=== PATIENT | male | born 1995 | race Caucasian/White ===

== ENCOUNTER 2017-09-01 11:33 | Emergency (ER) | payer OTHER ==
[~2017-09-01] VITALS: Ht 185.4 cm; Wt 57.5 kg
[~2017-09-01 11:33] MED LIST: AEROCHAMBER Z-S1 DEV PO; ALBUTEROL0.83 MG/ML IH; LEVAQUIN 5500 MG/TA1 PO; LEVAQUIN 750MG750 M1 PO; NORCO 325 MG-51 TAB PO; PREDNISONE20 MG PO; PROVENTIL0.09 MG/A1 IH; XARELTO15 MG PO; [UNRECOGNIZED DRUG - CODE] PO; [UNRECOGNIZED DRUG - REMARK]
[2017-09-01 11:37] VITALS: BP 134/91
[2017-09-01 13:58] LABS: BASO % 0.6 % (0.0-2.0); EOS % 0.8 % (0-4.0); GRAN # 3.4 (1.4-6.5); GRAN % 65.7 % (42.2-75.2); HEMOGLOBIN 15.5 g/dl (13.5-18.0); LYMPH # 1.2 (1.2-3.4); LYMPH % 22.4 % (20.0-51.0); MEAN CELL VOLUME 89 fl (80.0-100.0); MEAN CORPUSCULAR HEMOGLOBIN 30 pg (27.0-31.0); MEAN CORPUSCULAR HGB CONC 34 g/dl (33.0-37.0); MEAN PLATELET VOLUME 9.7 fl (7.4-10.4); MONO # 0.5 (0.1-0.6); MONO % 10.3 % (1.7-9.3); PLATELET COUNT 148 K/mm3 (130-400); RED BLOOD COUNT 5.15 M/mm3 (4.20-5.60); REDCELL DISTRIBUTION WIDTH-CV 13.7 % (11.5-14.5)
[2017-09-01 14:09] LABS: ALBUMIN 4.5 gm/dL (3.5-5.0); BILIRUBIN,TOTAL 2.3 mg/dL (0.0-1.0); CREATININE, serum 0.93 mg/dL (0.66-1.25); POTASSIUM 3.9 mmol/L (3.4-5.0); TOTAL PROTEIN 8.2 gm/dL (6.4-8.2)
[2017-09-01 15:00] VITALS: TEMP 99.4
[2017-09-01] MEDS ORDERED: TAMIFLU 75MG75 MG PO (16:00)
[2017-09-01 16:07] VITALS: PULSE 102
== END 2017-09-01 16:08 | disposition home or self-care (01) ==
LOC: COL.ER 11:33
PROVIDERS: Nurse Practitioner
DX: J10.1 Influenza due to other identified influenza virus with other respiratory manifestations (principal); Z91.14 Patient's other noncompliance with medication regimen; Z85.71 Personal history of Hodgkin lymphoma; I27.0 Primary pulmonary hypertension; Z86.711 Personal history of pulmonary embolism; Z86.718 Personal history of other venous thrombosis and embolism; Z98.890 Other specified postprocedural states; Z87.891 Personal history of nicotine dependence; Z79.01 Long term (current) use of anticoagulants
CPT/HCPCS: J7030; Q9967

== ENCOUNTER 2018-06-02 09:19 | Emergency (ER) | payer BC ==
[~2018-06-02] VITALS: Ht 185.4 cm; Wt 63.6 kg
[~2018-06-02 09:19] MED LIST changes: +TAMIFLU 75MG75 MG PO
[2018-06-02 09:24] VITALS: TEMP 97.1
[2018-06-02 09:50] LABS: BASO % 0.7 % (0.0-2.0); EOS # 0.2 (0.0-0.7); EOS % 2.7 % (0-4.0); GRAN % 71.5 % (42.2-75.2); HEMATOCRIT 42.2 % (42.0-52.0); HEMOGLOBIN 13.9 g/dl (13.5-18.0); LYMPH % 17.6 % (20.0-51.0); MEAN CELL VOLUME 92 fl (80.0-100.0); MEAN CORPUSCULAR HEMOGLOBIN 30 pg (27.0-31.0); MEAN CORPUSCULAR HGB CONC 33 g/dl (33.0-37.0); MEAN PLATELET VOLUME 8.7 fl (7.4-10.4); MONO # 0.4 (0.1-0.6); MONO % 7.1 % (1.7-9.3); PLATELET COUNT 185 K/mm3 (130-400); RED BLOOD COUNT 4.58 M/mm3 (4.20-5.60); REDCELL DISTRIBUTION WIDTH-CV 13.8 % (11.5-14.5)
[2018-06-02 09:56] LABS: INR 1.3 (0.8-3.0); PROTHROMBIN TIME 15.1 SECONDS (9.7-12.8)
[2018-06-02 10:03] LABS: ALBUMIN 3.6 gm/dL (3.5-5.0); BILIRUBIN,TOTAL 1.6 mg/dL (0.0-1.0); CALCIUM 8.8 mg/dL (8.4-10.2); CREATININE, serum 1.02 mg/dL (0.66-1.25); POTASSIUM 3.9 mmol/L (3.4-5.0); TOTAL PROTEIN 6.6 gm/dL (6.4-8.2)
[2018-06-02] MEDS ORDERED: LASIX 20MG TABL20 MG PO (10:10)
[2018-06-02] MEDS ORDERED: XARELTO20 MG PO (10:11)
[2018-06-02] MEDS ORDERED: OPSUMIT PO (10:12)
[2018-06-02] MEDS ORDERED: CIALIS20 MG PO (10:12)
[2018-06-02 12:53] VITALS: BP 111/88; PULSE 97
== END 2018-06-02 12:55 | disposition home or self-care (01) ==
LOC: COL.ER 09:19
PROVIDERS: Emergency Medicine
DX: I27.20 Pulmonary hypertension, unspecified (principal); I50.9 Heart failure, unspecified; E87.70 Fluid overload, unspecified; C81.90 Hodgkin lymphoma, unspecified, unspecified site; Z79.01 Long term (current) use of anticoagulants; Z86.711 Personal history of pulmonary embolism
CPT/HCPCS: J1940

== ENCOUNTER 2018-08-18 16:20 | Emergency (ER) | payer BC ==
[~2018-08-18] VITALS: Ht 185.4 cm; Wt 63.6 kg
[~2018-08-18 16:20] MED LIST changes: +CIALIS20 MG PO; +LASIX 20MG TABL20 MG PO; +OPSUMIT PO; +XARELTO20 MG PO
[2018-08-18] MEDS ORDERED: ADCIRCA20 MG PO (16:49)
[2018-08-18 17:03] LABS: BASO % 0.6 % (0.0-2.0); EOS # 0.1 (0.0-0.7); EOS % 0.8 % (0-4.0); GRAN % 77.4 % (42.2-75.2); HEMATOCRIT 40.5 % (42.0-52.0); HEMOGLOBIN 13.5 g/dl (13.5-18.0); LYMPH # 0.8 (1.2-3.4); LYMPH % 12.1 % (20.0-51.0); MEAN CELL VOLUME 93 fl (80.0-100.0); MEAN CORPUSCULAR HEMOGLOBIN 31 pg (27.0-31.0); MEAN CORPUSCULAR HGB CONC 33 g/dl (33.0-37.0); MEAN PLATELET VOLUME 8.8 fl (7.4-10.4); MONO # 0.6 (0.1-0.6); MONO % 8.8 % (1.7-9.3); PLATELET COUNT 177 K/mm3 (130-400); RED BLOOD COUNT 4.36 M/mm3 (4.20-5.60); REDCELL DISTRIBUTION WIDTH-CV 13.6 % (11.5-14.5)
[2018-08-18 17:11] LABS: ALBUMIN 3.6 gm/dL (3.5-5.0); CALCIUM 8.5 mg/dL (8.4-10.2); CREATININE, serum 1.14 mg/dL (0.66-1.25); POTASSIUM 3.2 mmol/L (3.4-5.0); TOTAL PROTEIN 6.7 gm/dL (6.4-8.2)
[2018-08-18] MEDS ORDERED: K-DUR20 MEQ PO (17:59)
[2018-08-18 19:51] VITALS: BP 108/82; PULSE 91; TEMP 97.3
== END 2018-08-18 20:15 | disposition home or self-care (01) ==
LOC: COL.ER 16:20
PROVIDERS: Emergency Medicine
DX: I50.9 Heart failure, unspecified (principal); I27.20 Pulmonary hypertension, unspecified; E87.6 Hypokalemia; I48.92 Unspecified atrial flutter
CPT/HCPCS: J1940; J3475

== ENCOUNTER 2019-08-14 11:38 | Inpatient (IN) | payer BC, MEDICARE ==
[~2019-08-14] VITALS: Ht 185.4 cm; Wt 63.3 kg
[~2019-08-14 11:38] MED LIST changes: +ADCIRCA20 MG PO; +K-DUR20 MEQ PO
[2019-08-14] MEDS ORDERED: ALDACTONE50 MG PO (12:36)
[2019-08-14] MEDS ORDERED: OPSUMIT PO (12:37)
[2019-08-14 14:00] LABS: BASO # 0.1 (0.0-0.2); BASO % 0.9 % (0.0-2.0); EOS # 0.3 (0.0-0.7); EOS % 5.1 % (0-4.0); HEMATOCRIT 41.7 % (42.0-52.0); HEMOGLOBIN 13.4 g/dl (13.5-18.0); LYMPH # 0.6 (1.2-3.4); LYMPH % 10.3 % (20.0-51.0); MEAN CELL VOLUME 95 fl (80.0-100.0); MEAN CORPUSCULAR HEMOGLOBIN 31 pg (27.0-31.0); MEAN CORPUSCULAR HGB CONC 32 g/dl (33.0-37.0); MEAN PLATELET VOLUME 9.6 fl (7.4-10.4); MONO # 0.4 (0.1-0.6); MONO % 8.3 % (1.7-9.3); PLATELET COUNT 162 K/mm3 (130-400); REDCELL DISTRIBUTION WIDTH-CV 14.4 % (11.5-14.5)
[2019-08-14 14:25] LABS: ALANINE AMINOTRANSFERASE 12 U/L (21-72); ALBUMIN 4.2 gm/dL (3.5-5.0); ALKALINE PHOSPHATASE 81 U/L (50-136); ANION GAP 12 mmol/L (7-16); AST,SGOT 19 U/L (15-37); BILIRUBIN,TOTAL 2.2 mg/dL (0.0-1.0); BLOOD UREA NITROGEN 12 mg/dL (9-20); CALCIUM 8.6 mg/dL (8.4-10.2); CARBON DIOXIDE 27 mmol/L (22-30); CHLORIDE 101 mmol/L (98-107); CREATININE, serum 1.01 (0.66-1.25); GLUCOSE 64 mg/dL (74-106); POTASSIUM 3.6 mmol/L (3.4-5.0); SODIUM 140 mmol/L (137-145); TOTAL PROTEIN 7.5 gm/dL (6.4-8.2)
[2019-08-14 14:40] LABS: TROPONIN-I < 0.012 ng/mL (0.000-0.035)
--- NOTE | 2019-08-14 16:30 | NUR ---
PATIENT ADMITED INTO ROOM 350 FROM ER WITH PNEUMONIA AND PULMONARY HTN. PATIENT HAS AN EXTENSIVE HISTORY INCLUDING HODGKINS LYMPHOMA, DVT, PE, AND CHF. NOTED RIGHT LL DEMINISHED, EXP WHEEZE. PATIENT REPORTS PRODUCTIVE COUGH WITH YELLOW/GREEN SPUTUM, NOT SEEN AT THIS TIME. PATIENT WAS REQUIRING O2 AT 2L IN ER TO KEEP SATS ABOVE 90%. PATIENT TYPICALLY REFUSES OXYGEN. TELE INPLACE WITH HR IN 90-100'S. HOSPITALIST AT BEDSIDE. HEAD TO TOE COMPLETE. MOTHER AT BEDSIDE BUT GOING HOME TO LET THE DOG OUT AND GET THE PATIENT'S MEDS.
[2019-08-14 17:09] VITALS: BP 107/76; PULSE 97; TEMP 98.7
--- NOTE | 2019-08-14 17:30 | NUR ---
PATIENT GOING DOWN FOR CT
[2019-08-14 19:31] VITALS: BP 108/65; PULSE 109; TEMP 98.5
--- NOTE | 2019-08-14 19:45 | NUR ---
Pt. sitting up in bed with family at bedside. Pt. is A&OX3, assessment complete. INT to rt. ac patent. Pt. denies pain or other needs at this time.
[2019-08-15 00:40] VITALS: BP 106/53; PULSE 104; TEMP 99.2
[2019-08-15 04:30] VITALS: BP 100/50; PULSE 101; TEMP 98.4
[2019-08-15 07:17] LABS: BASO # 0.1 (0.0-0.2); BASO % 1.1 % (0.0-2.0); EOS # 0.2 (0.0-0.7); GRAN # 3.2 (1.4-6.5); GRAN % 69.6 % (42.2-75.2); HEMATOCRIT 37.1 % (42.0-52.0); HEMOGLOBIN 12.1 g/dl (13.5-18.0); LYMPH # 0.7 (1.2-3.4); LYMPH % 16.3 % (20.0-51.0); MEAN CELL VOLUME 94 fl (80.0-100.0); MEAN CORPUSCULAR HEMOGLOBIN 31 pg (27.0-31.0); MEAN CORPUSCULAR HGB CONC 33 g/dl (33.0-37.0); MEAN PLATELET VOLUME 9.6 fl (7.4-10.4); MONO # 0.4 (0.1-0.6); MONO % 8.8 % (1.7-9.3); PLATELET COUNT 151 K/mm3 (130-400); RED BLOOD COUNT 3.95 M/mm3 (4.20-5.60); REDCELL DISTRIBUTION WIDTH-CV 14.5 % (11.5-14.5)
[2019-08-15 07:31] LABS: ALBUMIN 3.8 gm/dL (3.5-5.0); BILIRUBIN,TOTAL 1.6 mg/dL (0.0-1.0); C-REACTIVE PROTEIN 1.3 mg/dL (0.0-0.9); CALCIUM 8.5 mg/dL (8.4-10.2); CREATININE, serum 0.98 (0.66-1.25); POTASSIUM 3.5 mmol/L (3.4-5.0); TOTAL PROTEIN 6.7 gm/dL (6.4-8.2)
[2019-08-15 07:35] VITALS: BP 113/72; PULSE 107; TEMP 98.6
[2019-08-15 08:12] LABS: ERYTHROCYTE SEDIMENTATION RATE 9 mm/hr (0-15)
--- NOTE | 2019-08-15 08:32 | NUR ---
Report called to [facility].
--- NOTE | 2019-08-15 08:51 | NUR ---
Patient transferred via EMS to [facility] at 0840.
== END 2019-08-15 08:40 | disposition short-term general hospital (02) | DRG 871 ==
LOC: COL.ER 11:38 → SURG 15:06
PROVIDERS: Emergency Medicine; Physician Assistant; ADMIT Student in an Organized Health Care Education/Training Program
DX: A41.9 Sepsis, unspecified organism (principal); J18.9 Pneumonia, unspecified organism; I50.22 Chronic systolic (congestive) heart failure; M31.8 Other specified necrotizing vasculopathies; I27.89 Other specified pulmonary heart diseases; R65.20 Severe sepsis without septic shock; E16.2 Hypoglycemia, unspecified; I27.20 Pulmonary hypertension, unspecified; F17.210 Nicotine dependence, cigarettes, uncomplicated; Z79.01 Long term (current) use of anticoagulants; Z86.718 Personal history of other venous thrombosis and embolism; Z86.711 Personal history of pulmonary embolism; Z85.71 Personal history of Hodgkin lymphoma; Z92.21 Personal history of antineoplastic chemotherapy
CPT/HCPCS: 99223-AI; A4216; J0456; J0696; J2550; J7030; J7050; Q9967

== ENCOUNTER 2020-11-05 17:34 | Inpatient (IN) | payer MEDICARE ==
[~2020-11-05] VITALS: Ht 185.4 cm; Wt 62.0 kg
[~2020-11-05 17:34] MED LIST changes: +ALDACTONE50 MG PO
[2020-11-05] MEDS ORDERED: ELIQUIS 5MG PO ×2 (18:07→21:50)
[2020-11-05 18:11] LABS: BASO % 0.8 % (0.0-2.0); EOS # 0.1 (0.0-0.7); EOS % 2.1 % (0-4.0); GRAN # 3.7 (1.4-6.5); HEMATOCRIT 42.2 % (42.0-52.0); HEMOGLOBIN 13.4 g/dl (13.5-18.0); LYMPH # 0.5 (1.2-3.4); LYMPH % 11.1 % (20.0-51.0); MEAN CELL VOLUME 98 fl (80.0-100.0); MEAN CORPUSCULAR HEMOGLOBIN 31 pg (27.0-31.0); MEAN CORPUSCULAR HGB CONC 32 g/dl (33.0-37.0); MEAN PLATELET VOLUME 9.2 fl (7.4-10.4); MONO # 0.4 (0.1-0.6); MONO % 8.8 % (1.7-9.3); PLATELET COUNT 145 K/mm3 (130-400); RED BLOOD COUNT 4.31 M/mm3 (4.20-5.60); REDCELL DISTRIBUTION WIDTH-CV 15.7 % (11.5-14.5)
[2020-11-05 18:13] LABS: INR 1.7 (0.8-3.0); PROTHROMBIN TIME 18.7 SECONDS (9.7-12.8)
[2020-11-05 18:30] LABS: ALANINE AMINOTRANSFERASE 10 U/L (4-49); ALKALINE PHOSPHATASE 75 U/L (50-136); ANION GAP 8 mmol/L (7-16); AST,SGOT 22 U/L (15-37); BILIRUBIN,TOTAL 3.5 mg/dL (0.0-1.0); BLOOD UREA NITROGEN 11 mg/dL (9-20); CALCIUM 8.8 mg/dL (8.4-10.2); CARBON DIOXIDE 32 mmol/L (22-30); CHLORIDE 99 mmol/L (98-107); CREATININE, serum 0.96 (0.66-1.25); GLUCOSE 74 mg/dL (74-106); POTASSIUM 3.7 mmol/L (3.4-5.0); SODIUM 139 mmol/L (137-145); TOTAL PROTEIN 7.8 gm/dL (6.4-8.2)
[2020-11-05 18:46] LABS: TROPONIN-I < 0.012 ng/mL (0.000-0.035)
[2020-11-05] MEDS ORDERED: TYVASO0.6 MG/ML IH (19:34)
[2020-11-05 21:42] VITALS: BP 111/78; PULSE 92; TEMP 97.7
--- NOTE | 2020-11-05 22:20 | NUR ---
Adnitted to medical floor from ER, DX CHF, Pleasant, alert/oriented, requesting sandwich for snack tonight-- on AHA diet with 1500cc fluid restriction, pt states understanding. Tele on, Irene LEAL has seen the patient and is writing orders--mom called and clarified the doses of home meds- o2 at 3L-sats 94%, Lung sounds decreased in the bases, has 2+ bilateral lower ext edema, right side slightly greater than the left. Up to bathroom, staeady on feet-voided 500cc clear yellow urine.
[2020-11-05 23:43] VITALS: BP 100/76; PULSE 95; TEMP 97.9
[2020-11-06 04:07] VITALS: BP 99/68; PULSE 97; TEMP 97.8
--- NOTE | 2020-11-06 04:15 | NUR ---
Bumex drip stopped at this time per order,, has had 3800cc urine output since Bumex started in ER-- pt states "Im getting dehydrated ", requesting more water to drink- small cup water given and reviewed about fluid restriction with patient.
--- NOTE | 2020-11-06 05:58 | NUR ---
Resting, No requests at this time. o2 remains at 3L/nc sats range from 92-94%
[2020-11-06 07:31] LABS: CALCIUM 8.3 mg/dL (8.4-10.2); CREATININE, serum 0.86 (0.66-1.25); POTASSIUM 3.6 mmol/L (3.4-5.0)
[2020-11-06 07:33] LABS: BASO # 0.1 (0.0-0.2); EOS # 0.2 (0.0-0.7); EOS % 3.3 % (0-4.0); GRAN # 3.3 (1.4-6.5); GRAN % 68.5 % (42.2-75.2); HEMATOCRIT 38.5 % (42.0-52.0); HEMOGLOBIN 12.2 g/dl (13.5-18.0); LYMPH # 0.8 (1.2-3.4); MEAN CELL VOLUME 98 fl (80.0-100.0); MEAN CORPUSCULAR HEMOGLOBIN 31 pg (27.0-31.0); MEAN CORPUSCULAR HGB CONC 32 g/dl (33.0-37.0); MEAN PLATELET VOLUME 9.3 fl (7.4-10.4); MONO # 0.5 (0.1-0.6); MONO % 10.2 % (1.7-9.3); PLATELET COUNT 145 K/mm3 (130-400); RED BLOOD COUNT 3.92 M/mm3 (4.20-5.60); REDCELL DISTRIBUTION WIDTH-CV 15.8 % (11.5-14.5)
[2020-11-06 07:52] VITALS: BP 110/69; PULSE 96; TEMP 97.9
--- NOTE | 2020-11-06 09:27 | NUR ---
APPLIED PSYCHOLOGY TEACHER reports his O2 sat is only 87-88% and this was done earlier and was the same, cardiopulmonary staff notified and will check on patient
--- NOTE | 2020-11-06 09:29 | NUR ---
O2 sat checked by cardiopulmonary and is 92% on 2L
--- NOTE | 2020-11-06 09:40 | NUR ---
Initial visit; Patient thanked Correctional Casework Specialist for stopping though stated he has no needs. Correctional Casework Specialist offered God's blessings.
--- NOTE | 2020-11-06 10:00 | NUR ---
awake resting in bed, mother at bedside, full assessment completed, see interventions for further info, O2 sat on 2L 96%, denies pain or needs, 2 home meds to pharmacy for verification before administering
--- NOTE | 2020-11-06 10:44 | NUR ---
Knit Tubing Dyer attended clinical rounds with the team. The patient's mother Brittani was present. Lozenge Maker consulted.
--- NOTE | 2020-11-06 11:30 | NUR ---
resting in bed, mother remains at bedside, reminded about ordering lunch
[2020-11-06 11:53] VITALS: BP 102/65; PULSE 93; TEMP 98
--- NOTE | 2020-11-06 14:45 | NUR ---
bedside shift report given to DEBBI Helton
[2020-11-06 15:34] VITALS: BP 111/75; PULSE 89; TEMP 97.9
--- NOTE | 2020-11-06 17:23 | NUR ---
Patient laying in bed, A&Ox4. VSS 2L NC O2. No reported SOB. IV CDI. Denies pain and discomfort. Patient wants to take a shower, nurse informed the patient that water was turned off and it should be back on in an hour. Call light within reach
--- NOTE | 2020-11-06 19:00 | NUR ---
Received report from Sunitha. Patient awake in bed. Patient's mom at bedside. He requested to have warm shower. Will inform TRANSFUSION NURSE for assistance.
[2020-11-06 19:10] VITALS: BP 101/59; PULSE 91; TEMP 98.2
--- NOTE | 2020-11-06 19:30 | NUR ---
PATIENT HAD TAKEN MEDICATION AT 1830. THERE WAS NO BARCODE THAT WOULD SCAN MEDICATION IN THE ROOM. PHARMACY NOTIFIED. PATIENT STATED HE TAKES MED QID WITH SCHEDULE BEING EVERY 4 HOURS. WHEN ASKED ABOUT SPECIFIC SCHEDULE HE STATED HE TAKES FIRST DOSE WHENEVER HIS MOM GIVES IT TO HIM.
--- NOTE | 2020-11-06 20:45 | NUR ---
Assesment done. Rechecked patient's SPO2. He is now at 93% on O2 at 3lpm via NC. He denies pain. He was able to take a shower awhile ago. Feet has +2 edema and hips as well. He is aware on his fluid restriction. Call light within reach.
[2020-11-07] VITALS (7 sets, daily range): BP systolic 94–136; BP diastolic 50–75; PULSE 82–104; TEMP 97.7–99
--- NOTE | 2020-11-07 05:41 | NUR ---
Patient had been asleep most of the night. He denies pain. Still on O2 at 3lpm via NC.
[2020-11-07 07:31] LABS: BASO # 0.1 (0.0-0.2); EOS # 0.2 (0.0-0.7); EOS % 2.9 % (0-4.0); GRAN # 4.5 (1.4-6.5); GRAN % 71.7 % (42.2-75.2); HEMATOCRIT 38.7 % (42.0-52.0); HEMOGLOBIN 12.4 g/dl (13.5-18.0); LYMPH # 0.9 (1.2-3.4); LYMPH % 14.8 % (20.0-51.0); MEAN CELL VOLUME 98 fl (80.0-100.0); MEAN CORPUSCULAR HEMOGLOBIN 31 pg (27.0-31.0); MEAN CORPUSCULAR HGB CONC 32 g/dl (33.0-37.0); MEAN PLATELET VOLUME 9.6 fl (7.4-10.4); MONO # 0.6 (0.1-0.6); MONO % 9.4 % (1.7-9.3); PLATELET COUNT 151 K/mm3 (130-400); RED BLOOD COUNT 3.96 M/mm3 (4.20-5.60); REDCELL DISTRIBUTION WIDTH-CV 15.5 % (11.5-14.5)
[2020-11-07 07:42] LABS: ALBUMIN 3.7 gm/dL (3.5-5.0); BILIRUBIN,TOTAL 3.6 mg/dL (0.0-1.0); CALCIUM 8.7 mg/dL (8.4-10.2); CREATININE, serum 0.93 (0.66-1.25); POTASSIUM 3.6 mmol/L (3.4-5.0); TOTAL PROTEIN 7.2 gm/dL (6.4-8.2)
--- NOTE | 2020-11-07 09:49 | NUR ---
JORGE ALBERTO met with the patient and his mother, Kia Ramos (ph#[phone]), to discuss discharge plan. The patient lives in [place] with his mother and father, Michael. He reports independence with ADLs and does not use any assistive devices. He has nocturnal oxygen from [facility] that he states that he uses when needed. The patient's PCP is Dr. Chaim Wright and he receives his medications from [facility]. Kia reports that that patient's medications are very expensive and the patient is enrolled in some programs to reduce the cost of some of his meds. She states that his Eliquis is very expensive. JORGE ALBERTO informed her of possible free samples from his manager critical care unit and [email or web address] [facility]. The patient does not have a DPOA-HC. He is not and does not have any children. His next-of-kin is his parents. The patient plans to return home with his parents upon discharge. An exercise omimetry was ordered. SW to continue to follow. *Discharge plan: home with parents*
--- NOTE | 2020-11-07 13:54 | NUR ---
Primary nurse was assisted with [phone] patient care by [employer] student Kathie Lieberman and [employer] instructor Lexi Nesbitt MSN, RN.
--- NOTE | 2020-11-07 20:30 | NUR ---
Initial shift assessment done-denies pain, no SOB at this time-- is on 3L/nc with sats 91-92%,On lasix drip IV-- at 11cc/hr, {10mg/hr}, having good output,,understands we need to measure urine. Tele on. On 1500cc/fluid restriction-- patient states "they are going to have to increase that because I,m drying out"
[2020-11-08] VITALS: BP 102/77; PULSE 113; TEMP 98.2
[2020-11-08 03:54] VITALS: BP 113/72; PULSE 88; TEMP 97.5
--- NOTE | 2020-11-08 05:21 | NUR ---
Did not sleep much last night- has the Lasix drip infusing at 10mg/hr,, o2 sats from 90-96% on the 3.5L.nc, Had 3000cc of urine out this shift.
[2020-11-08 06:44] LABS: BASO # 0.1 (0.0-0.2); BASO % 0.8 % (0.0-2.0); EOS # 0.2 (0.0-0.7); EOS % 2.7 % (0-4.0); GRAN # 4.5 (1.4-6.5); HEMATOCRIT 40.3 % (42.0-52.0); HEMOGLOBIN 13.2 g/dl (13.5-18.0); LYMPH # 0.9 (1.2-3.4); LYMPH % 14.9 % (20.0-51.0); MEAN CELL VOLUME 96 fl (80.0-100.0); MEAN CORPUSCULAR HEMOGLOBIN 31 pg (27.0-31.0); MEAN CORPUSCULAR HGB CONC 33 g/dl (33.0-37.0); MEAN PLATELET VOLUME 9.4 fl (7.4-10.4); MONO # 0.6 (0.1-0.6); MONO % 9.4 % (1.7-9.3); PLATELET COUNT 173 K/mm3 (130-400); REDCELL DISTRIBUTION WIDTH-CV 15.3 % (11.5-14.5)
[2020-11-08 06:56] LABS: CALCIUM 9.2 mg/dL (8.4-10.2); CREATININE, serum 1.05 (0.66-1.25); MAGNESIUM 2.2 mg/dL (1.6-2.3); POTASSIUM 3.5 mmol/L (3.4-5.0)
[2020-11-08 08:53] VITALS: BP 103/61; PULSE 71; TEMP 97.7
--- NOTE | 2020-11-08 09:23 | NUR ---
PT WAITING ON MOM TO COME AND PREPARE HIS MACHINE AND MED FOR USE. WILL TAKE NEB WHEN IT IS READY.
[2020-11-08] MEDS ORDERED: OXYGEN NASAL.CANN (11:20)
[2020-11-08 11:38] VITALS: BP 99/68; PULSE 99; TEMP 97.8
--- NOTE | 2020-11-08 11:38 | NUR ---
The patient qualified for continuous oxygen. SW contacted and faxed the order to Chloe at [facility]. Awaiting delivery of portable tank.
[2020-11-08 12:13] VITALS: BP 124/83; PULSE 94; TEMP 98
--- NOTE | 2020-11-08 12:33 | NUR ---
Discharge orders discussed with the patient, instructed to follow up with as scheduled, instructed to continue all prior home meds, no meds changes or new meds added, IV and tele removed, instructed to wear 3-4L O2 at all times untill instructed further, leaving with mother at this time, via wheelchair with oxygen at this time, Student nurse is escorting them out the door
--- NOTE | 2020-11-08 12:49 | NUR ---
Primary nurse was assisted with [id number] patient care by [employer] [facility] Kathie Lieberman and [employer] instructor Lexi Nesbitt MSN, RN.
--- NOTE | 2020-11-08 14:40 | NUR ---
An exercise oximetry was done. JORGE ALBERTO staffed with the PA and RT. RT would recommend around 3-4 liters of continuous oxygen. JORGE ALBERTO contacted and faxed the continuous oxygen order to Chloe at [facility]. The patient discharged back home with his mother today, 11/08. JORGE ALBERTO notified Chloe at [facility]. Chloe reports that she will get in contact with the patient and his mother to deliver the portable tanks to their home. JORGE ALBERTO followed up with the patient's mother, Kia, about the oxygen. Kia reports that she has been in contact with [facility] and they are on on their way to their home to deliver the portable oxygen. No additional needs at this time.
== END 2020-11-08 12:37 | disposition home or self-care (01) | DRG 314 ==
LOC: COL.ER 17:34 → MEDICAL 19:45
PROVIDERS: Family Medicine; Physician Assistant; Student in an Organized Health Care Education/Training Program
DX: I27.20 Pulmonary hypertension, unspecified (principal); I50.23 Acute on chronic systolic (congestive) heart failure; J96.01 Acute respiratory failure with hypoxia; C81.90 Hodgkin lymphoma, unspecified, unspecified site; R64 Cachexia; Z68.1 Body mass index [BMI] 19.9 or less, adult; I27.89 Other specified pulmonary heart diseases; E80.6 Other disorders of bilirubin metabolism; F17.210 Nicotine dependence, cigarettes, uncomplicated; Z86.711 Personal history of pulmonary embolism; Z86.718 Personal history of other venous thrombosis and embolism; Z79.01 Long term (current) use of anticoagulants; Z92.21 Personal history of antineoplastic chemotherapy; Z88.8 Allergy status to other drugs, medicaments and biological substances
CPT/HCPCS: OP; 99223-AI; 99232-AI; 99233-AI; 99239; G0378; J1940

== ENCOUNTER 2021-07-09 06:06 | Inpatient (IN) | payer MEDICARE ==
[~2021-07-09] VITALS: Ht 180.3 cm; Wt 66.2 kg
[~2021-07-09 06:06] MED LIST changes: +ELIQUIS 5MG PO; +OXYGEN NASAL.CANN; +TYVASO0.6 MG/ML IH
[2021-07-09 06:28] LABS: BASO # 0.1 K/mm3 (0.0-0.2); BASO % 0.8 % (0.0-2.0); EOS # 0.1 K/mm3 (0.0-0.7); EOS % 2.1 % (0.0-4.0); GRAN # 4.4 K/mm3 (1.4-6.5); GRAN % 72.3 % (42.2-75.2); HEMATOCRIT 42.3 % (42.0-52.0); HEMOGLOBIN 14.1 g/dl (13.5-18.0); LYMPH % 16.6 % (20.0-51.0); MEAN CELL VOLUME 94 fl (80.0-100.0); MEAN CORPUSCULAR HEMOGLOBIN 31 pg (27-31); MEAN CORPUSCULAR HGB CONC 33 g/dl (33.0-37.0); MEAN PLATELET VOLUME 9.1 fl (7.4-10.4); MONO # 0.5 K/mm3 (0.1-0.6); PLATELET COUNT 164 K/mm3 (130-400); RED BLOOD COUNT 4.49 M/mm3 (4.20-5.60); REDCELL DISTRIBUTION WIDTH-CV 14.3 % (11.5-14.5)
[2021-07-09 06:46] LABS: INR 1.5 (0.8-3.0); PROTHROMBIN TIME 16.5 SECONDS (9.7-12.8)
[2021-07-09 06:54] LABS: ARTERIAL BLD GAS O2 SATURATION 90.8 % (92-100); ARTERIAL BLD GAS TCO2 CT 22.1; ARTERIAL BLOOD GAS BASE EXCESS -3.2 (-2-2); ARTERIAL BLOOD GAS PCO2 35.5 mmHg (35-45); ARTERIAL BLOOD GAS PO2 60.9 mmHg (80-100); ARTERIAL BLOOD GAS pH 7.39 (7.35-7.45)
[2021-07-09 07:07] LABS: ALANINE AMINOTRANSFERASE 6 U/L (0-55); ALBUMIN 4.2 gm/dL (3.5-5.0); ALKALINE PHOSPHATASE 83 U/L (40-150); ANION GAP 13 mmol/L (7-16); AST,SGOT 12 U/L (5-34); BILIRUBIN,TOTAL 4.1 mg/dL (0.2-1.2); BLOOD UREA NITROGEN 17 mg/dL (9-21); C-REACTIVE PROTEIN 0.77 mg/dL (0.00-0.50); CALCIUM 8.7 mg/dL (8.4-10.2); CARBON DIOXIDE 24 mmol/L (22-29); CHLORIDE 98 mmol/L (98-107); CREATINE KINASE 35 U/L (30-200); CREATININE, serum 1.63 mg/dL (0.72-1.25); GLUCOSE 93 mg/dL (70-99); POTASSIUM 3.4 mmol/L (3.5-4.5); SODIUM 135 mmol/L (136-145); TOTAL PROTEIN 7.5 gm/dL (6.2-8.1)
[2021-07-09 07:28] LABS: MAGNESIUM 1.9 mg/dL (1.6-2.6)
[2021-07-09 07:38] LABS: TROPONIN-I < 0.010 ng/mL (0.00-0.033)
[2021-07-09 08:02] LABS: PARTIAL THROMBOPLASTIN TIME 33.1 SECONDS (26.0-37.0)
[2021-07-09 12:00] VITALS: BP 101/69; PULSE 102
[2021-07-09 12:41] VITALS: BP 104/82; PULSE 111; TEMP 97.6
== END 2021-07-09 13:07 | disposition short-term general hospital (02) | DRG 308 ==
LOC: COL.ER 06:06 → ICU 07:45
PROVIDERS: Emergency Medicine; ADMIT Internal Medicine
DX: I47.2 Ventricular tachycardia (principal); J96.01 Acute respiratory failure with hypoxia; I50.22 Chronic systolic (congestive) heart failure; N17.9 Acute kidney failure, unspecified; C81.90 Hodgkin lymphoma, unspecified, unspecified site; I27.20 Pulmonary hypertension, unspecified; I46.9 Cardiac arrest, cause unspecified; E87.6 Hypokalemia; I50.810 Right heart failure, unspecified; I11.0 Hypertensive heart disease with heart failure; I77.6 Arteritis, unspecified; Z86.718 Personal history of other venous thrombosis and embolism; Z86.711 Personal history of pulmonary embolism; Z87.891 Personal history of nicotine dependence; Z20.822 Contact with and (suspected) exposure to COVID-19
CPT/HCPCS: 99223-AI; 99239; J0282; J1644; J1940; J3010; J7060; Q9967

== ENCOUNTER 2021-09-19 10:54 | Inpatient (IN) | payer MEDICARE ==
[~2021-09-19] VITALS: Ht 185.4 cm; Wt 67.4 kg
[2021-09-19 11:25] LABS: BASO # 0.1 K/mm3 (0.0-0.2); BASO % 0.9 % (0.0-2.0); EOS # 0.2 K/mm3 (0.0-0.7); EOS % 2.6 % (0.0-4.0); GRAN # 5.2 K/mm3 (1.4-6.5); GRAN % 78.3 % (42.2-75.2); HEMATOCRIT 37.8 % (42.0-52.0); HEMOGLOBIN 12.3 g/dl (13.5-18.0); LYMPH # 0.6 K/mm3 (1.2-3.4); LYMPH % 8.9 % (20.0-51.0); MEAN CELL VOLUME 95 fl (80.0-100.0); MEAN CORPUSCULAR HEMOGLOBIN 31 pg (27-31); MEAN CORPUSCULAR HGB CONC 33 g/dl (33.0-37.0); MEAN PLATELET VOLUME 9.1 fl (7.4-10.4); MONO # 0.6 K/mm3 (0.1-0.6); MONO % 9.1 % (1.7-9.3); PLATELET COUNT 164 K/mm3 (130-400); RED BLOOD COUNT 3.99 M/mm3 (4.20-5.60); REDCELL DISTRIBUTION WIDTH-CV 15.8 % (11.5-14.5)
[2021-09-19 11:52] LABS: ALBUMIN 3.9 gm/dL (3.5-5.0); BILIRUBIN,TOTAL 1.9 mg/dL (0.2-1.2); CREATININE, serum 1.6 mg/dL (0.72-1.25); POTASSIUM 3.5 mmol/L (3.5-4.5); TOTAL PROTEIN 7.7 gm/dL (6.2-8.1)
[2021-09-19 11:58] LABS: TROPONIN-I 0.015 ng/mL (0.00-0.033)
[2021-09-19] MEDS ORDERED: COUMADIN 1MG1 MG/TAB PO (13:26)
[2021-09-19] MEDS ORDERED: UPTRAVI200 MCG PO (13:29)
[2021-09-19] MEDS ORDERED: PACERONE200 MG PO (13:31)
[2021-09-19 14:16] LABS: INR 3.9 (0.8-3.0); PROTHROMBIN TIME 44.3 SECONDS (9.7-12.8)
[2021-09-19 16:36] VITALS: BP 105/67; PULSE 78; TEMP 98.6
[2021-09-19 20:18] VITALS: BP 98/60; PULSE 76; TEMP 98.6
[2021-09-20] VITALS (7 sets, daily range): BP systolic 87–99; BP diastolic 47–64; PULSE 72–81; TEMP 97.3–98.7
--- NOTE | 2021-09-20 02:13 | NUR ---
PATIENT ALERT AND ORIENTED. VSS. DENIES PAIN OR SOB. FLUID RESTRICTION ENFORCED. TELE REPORTING SINUS RHYTHM. 4 L 02 VIA CO. LUNG SOUNDS SLIGHTLY DIMINISHED. 18 G R AC PATENT AND FLUSHES. URINALS IN BATHROOM FOR STRICT I&Os. DENIES FURTHER NEEDS. RESTING IN BED. CALL LIGHT IN REACH.
[2021-09-20 06:26] LABS: INR 4.2 (0.8-3.0)
[2021-09-20 06:27] LABS: BASO # 0.1 K/mm3 (0.0-0.2); BASO % 0.9 % (0.0-2.0); EOS # 0.3 K/mm3 (0.0-0.7); EOS % 4.4 % (0.0-4.0); GRAN % 72.9 % (42.2-75.2); HEMOGLOBIN 11.4 g/dl (13.5-18.0); LYMPH # 0.9 K/mm3 (1.2-3.4); LYMPH % 13.5 % (20.0-51.0); MEAN CELL VOLUME 96 fl (80.0-100.0); MEAN CORPUSCULAR HEMOGLOBIN 31 pg (27-31); MEAN CORPUSCULAR HGB CONC 32 g/dl (33.0-37.0); MEAN PLATELET VOLUME 9.2 fl (7.4-10.4); MONO # 0.5 K/mm3 (0.1-0.6); MONO % 7.9 % (1.7-9.3); PLATELET COUNT 165 K/mm3 (130-400); RED BLOOD COUNT 3.68 M/mm3 (4.20-5.60); REDCELL DISTRIBUTION WIDTH-CV 15.7 % (11.5-14.5)
[2021-09-20 06:28] LABS: HEMATOCRIT 35.2 % (42.0-52.0)
[2021-09-20 06:33] LABS: PROTHROMBIN TIME 47.2 SECONDS (9.7-12.8)
[2021-09-20 06:41] LABS: CALCIUM 8.7 mg/dL (8.4-10.2); CREATININE, serum 1.46 mg/dL (0.72-1.25); POTASSIUM 3.4 mmol/L (3.5-4.5)
--- NOTE | 2021-09-20 08:57 | NUR ---
Shift assessment performed. Amiodarone given, all other morning medications held per Dr. Hall. BP soft at 90/47. All other VSS. Patient currently requiring 5L of O2 via nasal cannula. Dyspnea at rest noted. Patient A&O. Home meds placed in patient bin for labeling. Patient denies any pain, discomfort, or further needs at this time. Call light in reach.
--- NOTE | 2021-09-20 11:27 | NUR ---
Initial visit; Patient using telephone, Litigation Paralegal introduced herself and wished him well.
--- NOTE | 2021-09-20 12:33 | NUR ---
JORGE ALBERTO met with pt to complete intake. The pt states he lives at home with his parents. The pt NK is his mother, Kia [phone]. The pt reports independent on all ADLS and does use o2 of 3L at night. PCP is Chaim Sue and gets his medications from [facility] or [facility]. The pt reports no DPOA-HC and is not interested at this time. DC: Home
--- NOTE | 2021-09-20 15:32 | NUR ---
Patient has had an ok day. Scheduled medications given. Patient BP's continue to be soft. All other VSS. Patient currently requiring 4L of O2 via nasal cannula. Denies any pain, discomfort, or further needs at this time. Call light in reach. Mother at the bedside.
[2021-09-21] VITALS (7 sets, daily range): BP systolic 85–116; BP diastolic 59–77; PULSE 72–81; TEMP 97.4–98.5
--- NOTE | 2021-09-21 05:22 | NUR ---
PATIENT CONTINUES TO HAVE LOW BLOOD PRESSURE THROUGHOUT THE NIGHT. PATIENT ASYMPTOMATIC. NO NEW ISSUES REPORTED BY PATIENT OR NOTED BY THIS NURSE.
[2021-09-21 06:44] LABS: CALCIUM 8.7 mg/dL (8.4-10.2); CREATININE, serum 1.25 mg/dL (0.72-1.25); MAGNESIUM 2.1 mg/dL (1.6-2.6); POTASSIUM 3.6 mmol/L (3.5-4.5)
--- NOTE | 2021-09-21 09:49 | NUR ---
PT SITTING UP IN BED EATING SKITTLES. ON 4LIT VIA NC. PT STATES NO PAIN OR NEEDS AT THIS TIME. CALL LIGHT IS WITHIN REACH.
[2021-09-21 10:06] LABS: INR 2.8 (0.8-3.0); PROTHROMBIN TIME 30.9 SECONDS (9.7-12.8)
--- NOTE | 2021-09-21 16:21 | NUR ---
PT SITTING UP IN BED WITH 4LIT VIA NC ON. PT STATES THAT HE WOULD LIKE TO HAVE SOME WATER. GAVE PT 400ML OF WATER. PT STATES NO OTHER NEEDS OR PAIN ATT. CALL LIGHT IS WITHIN REACH.
--- NOTE | 2021-09-21 18:29 | NUR ---
PT SITTING UP IN WITH 4 LIT VIA NC ON. PT STATES THAT HE IS DONE WITH HIS DINNER. TRAY WAS REMOVED. PT STATES NO OTHER NEEDS OR PAIN AT THIS TIME. CALL LIGHT IS WITHIN REACH.
[2021-09-22 04:17] VITALS: BP 91/60; PULSE 117; PULSE 77; TEMP 97.9
--- NOTE | 2021-09-22 06:12 | NUR ---
PATIENT CALM AND COOPERATIVE THROUGHOUT THE NIGHT. NO NEW ISSUES NOTED OR REPORTED BY PATIENT.
[2021-09-22 06:28] LABS: BASO # 0.1 K/mm3 (0.0-0.2); EOS # 0.2 K/mm3 (0.0-0.7); EOS % 4.2 % (0.0-4.0); GRAN # 4.1 K/mm3 (1.4-6.5); HEMOGLOBIN 11.3 g/dl (13.5-18.0); LYMPH # 0.8 K/mm3 (1.2-3.4); LYMPH % 13.6 % (20.0-51.0); MEAN CELL VOLUME 96 fl (80.0-100.0); MEAN CORPUSCULAR HEMOGLOBIN 31 pg (27-31); MEAN CORPUSCULAR HGB CONC 33 g/dl (33.0-37.0); MEAN PLATELET VOLUME 8.9 fl (7.4-10.4); MONO # 0.6 K/mm3 (0.1-0.6); MONO % 9.9 % (1.7-9.3); PLATELET COUNT 161 K/mm3 (130-400); RED BLOOD COUNT 3.61 M/mm3 (4.20-5.60); REDCELL DISTRIBUTION WIDTH-CV 15.7 % (11.5-14.5)
[2021-09-22 06:33] LABS: HEMATOCRIT 34.6 % (42.0-52.0)
[2021-09-22 06:46] LABS: CALCIUM 8.3 mg/dL (8.4-10.2); CREATININE, serum 1.25 mg/dL (0.72-1.25); POTASSIUM 4.2 mmol/L (3.5-4.5)
[2021-09-22 07:20] VITALS: BP 92/60; PULSE 73; TEMP 97.8
--- NOTE | 2021-09-22 08:22 | NUR ---
Amiodarone given. All other medications held due to BP of 92/60. Shift assessment performed. Patient currently requiring 4L of O2 via nasal cannula. Patient deneis any pain, discomfort, or further needs at this time. BP soft, all other VSS. Patient A&O. Call light in reach.
[2021-09-22 12:14] VITALS: BP 109/65; PULSE 76; TEMP 98.1
[2021-09-22] MEDS ORDERED: ALDACTONE 25MG25 M1 PO (13:39)
[2021-09-22] MEDS ORDERED: LASIX 20MG TABL20 MG PO (13:43)
[2021-09-22] MEDS ORDERED: COUMADIN 2MG2 MG/TAB PO (13:49)
--- NOTE | 2021-09-22 15:32 | NUR ---
Patient deemed fit for discharge. IV DC'd, catheter intact, no signs of phlebitis. Discharge instructions/education given. All questions answered. Patient verbalized and understanding of the teaching. VSS. Patient A&O. Patient denies any pain, discomfort, or further needs at this time. Patient escorted from the building by [facility] staff via wheelchair. Mother transporting home.
== END 2021-09-22 15:35 | disposition home or self-care (01) | DRG 291 ==
LOC: COL.ER 10:54 → MEDICAL 13:01
PROVIDERS: Emergency Medicine; Physician Assistant; Student in an Organized Health Care Education/Training Program; ADMIT Internal Medicine
DX: I13.0 Hypertensive heart and chronic kidney disease with heart failure and stage 1 through stage 4 chronic kidney disease, or unspecified chronic kidney disease (principal); I50.23 Acute on chronic systolic (congestive) heart failure; C81.90 Hodgkin lymphoma, unspecified, unspecified site; N17.9 Acute kidney failure, unspecified; I27.20 Pulmonary hypertension, unspecified; D64.9 Anemia, unspecified; N18.9 Chronic kidney disease, unspecified; Z20.822 Contact with and (suspected) exposure to COVID-19; Z99.81 Dependence on supplemental oxygen; Z86.718 Personal history of other venous thrombosis and embolism; Z86.711 Personal history of pulmonary embolism; Z87.891 Personal history of nicotine dependence; Z79.01 Long term (current) use of anticoagulants; Z95.810 Presence of automatic (implantable) cardiac defibrillator; Z23 Encounter for immunization
CPT/HCPCS: 99223-AI; 99232-AI; 99233-AI; 99239; J1940

== ENCOUNTER 2021-12-18 13:40 | Emergency (ER) | payer MEDICARE ==
[~2021-12-18] VITALS: Ht 185.4 cm; Wt 65.9 kg
[~2021-12-18 13:40] MED LIST changes: +ALDACTONE 25MG25 M1 PO; +COUMADIN 1MG1 MG/TAB PO; +COUMADIN 2MG2 MG/TAB PO; +PACERONE200 MG PO; +UPTRAVI200 MCG PO
[2021-12-18 13:49] VITALS: TEMP 99.5
[2021-12-18 14:45] VITALS: BP 115/78; PULSE 89
== END 2021-12-18 14:49 | disposition home or self-care (01) ==
LOC: COL.ER 13:40
DX: U07.1 COVID-19 (principal); Z28.310 Unvaccinated for COVID-19

== ENCOUNTER → 2022-09-02 | Outpatient (CLI) | payer MEDICARE, MEDICAID ==
[2022-09-02 19:18] LABS: CALCIUM 10.3 mg/dL (8.4-10.2); CREATININE, serum 2.25 mg/dL (0.72-1.25)
== END ==
LOC: COL.LAB 16:41
PROVIDERS: Internal Medicine
DX: E87.6 Hypokalemia (principal); I27.0 Primary pulmonary hypertension; Z79.899 Other long term (current) drug therapy

== ENCOUNTER → 2022-09-09 | Outpatient (CLI) | payer MEDICARE, MEDICAID ==
[2022-09-09 17:08] LABS: CALCIUM 9.6 mg/dL (8.4-10.2); CREATININE, serum 2.1 mg/dL (0.72-1.25); POTASSIUM 3.1 mmol/L (3.5-4.5)
== END ==
LOC: COL.LAB 16:28
PROVIDERS: Internal Medicine
DX: E87.6 Hypokalemia (principal); I27.0 Primary pulmonary hypertension; Z79.899 Other long term (current) drug therapy

== ENCOUNTER → 2022-09-15 | Outpatient (CLI) | payer MEDICARE, MEDICAID ==
[2022-09-15 17:13] LABS: CALCIUM 9.6 mg/dL (8.4-10.2); CREATININE, serum 2.2 mg/dL (0.72-1.25); POTASSIUM 4.9 mmol/L (3.5-4.5)
== END ==
LOC: COL.LAB 16:23
PROVIDERS: Internal Medicine
DX: E87.6 Hypokalemia (principal); E55.9 Vitamin D deficiency, unspecified; I27.0 Primary pulmonary hypertension; Z79.899 Other long term (current) drug therapy

== ENCOUNTER → 2022-10-01 | Outpatient (CLI) | payer MEDICARE, MEDICAID ==
[2022-10-01 17:21] LABS: BASO # 0.1 K/mm3 (0.0-0.2); BASO % 1.1 % (0.0-2.0); EOS # 0.2 K/mm3 (0.0-0.7); EOS % 2.6 % (0.0-4.0); GRAN # 5.5 K/mm3 (1.4-6.5); HEMOGLOBIN 13.3 g/dl (13.5-18.0); LYMPH # 0.5 K/mm3 (1.2-3.4); LYMPH % 6.8 % (20.0-51.0); MEAN CELL VOLUME 93 fl (80.0-100.0); MEAN CORPUSCULAR HEMOGLOBIN 30 pg (27-31); MEAN CORPUSCULAR HGB CONC 32 g/dl (33.0-37.0); MEAN PLATELET VOLUME 8.9 fl (7.4-10.4); MONO # 0.4 K/mm3 (0.1-0.6); MONO % 6.2 % (1.7-9.3); PLATELET COUNT 256 K/mm3 (130-400); RED BLOOD COUNT 4.43 M/mm3 (4.20-5.60); REDCELL DISTRIBUTION WIDTH-CV 15.6 % (11.5-14.5)
== END ==
LOC: COL.LAB 16:35
PROVIDERS: Internal Medicine
DX: I50.9 Heart failure, unspecified (principal); I27.20 Pulmonary hypertension, unspecified; E44.0 Moderate protein-calorie malnutrition; E03.9 Hypothyroidism, unspecified; N18.32 Chronic kidney disease, stage 3b; E83.42 Hypomagnesemia; E87.6 Hypokalemia; Z79.899 Other long term (current) drug therapy; I27.0 Primary pulmonary hypertension

== ENCOUNTER → 2022-10-08 | Outpatient (CLI) | payer MEDICARE, MEDICAID ==
[2022-10-08 17:38] LABS: CALCIUM 9.4 mg/dL (8.4-10.2); CREATININE, serum 1.73 mg/dL (0.72-1.25); POTASSIUM 4.2 mmol/L (3.5-4.5)
== END ==
LOC: COL.LAB 16:45
PROVIDERS: Internal Medicine
DX: E87.6 Hypokalemia (principal); I27.0 Primary pulmonary hypertension; Z79.899 Other long term (current) drug therapy

== ENCOUNTER → 2023-08-10 | Outpatient (CLI) | payer MEDICARE, MEDICAID ==
[2023-08-10 12:51] LABS: CALCIUM 9.5 mg/dL (8.4-10.2); CREATININE, serum 2.23 mg/dL (0.72-1.25); POTASSIUM 4.5 mmol/L (3.5-4.5)
== END ==
LOC: COL.LAB 11:49
PROVIDERS: Internal Medicine
DX: I27.20 Pulmonary hypertension, unspecified (principal); Z79.899 Other long term (current) drug therapy

== ENCOUNTER → 2023-08-17 | Outpatient (CLI) | payer MEDICARE, MEDICAID ==
[2023-08-17 13:02] LABS: CALCIUM 8.8 mg/dL (8.4-10.2); CREATININE, serum 1.6 mg/dL (0.72-1.25); POTASSIUM 4.4 mmol/L (3.5-4.5)
== END ==
LOC: COL.LAB 12:10
PROVIDERS: Internal Medicine
DX: I27.20 Pulmonary hypertension, unspecified (principal); Z79.899 Other long term (current) drug therapy